=== PATIENT | female | born 1955 | race Caucasian/White ===

== ENCOUNTER 2020-12-19 13:21 | Emergency (ER) | payer MEDICARE, MEDICAID ==
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
[2020-12-19 13:34] VITALS: BP 102/70
[2020-12-19] MEDS ORDERED: oxyCODONE /ACETAMINOPHEN 5-325MG TAB PO ONE (14:00)
--- NOTE | 2020-12-19 15:07 | Cat Scan Report ---
CT CERVICAL SPINE: 12/19/2020 INDICATION / CLINICAL INFORMATION: fall neck pain. COMPARISON: None available. FINDINGS: CT images of the cervical spine were obtained. Images are evaluated in the axial, coronal, and sagitt al planes. There is no definite evidence of acute abnormality. Extensive postsurgical changes are present. There is been anterior fusion at the C4-C7 levels. There is been posterior laminectomy and fusion at the C4-5 level. CRANIOCERVICAL JUNCTION: Unremarkable. PARASPINAL STRUCTURES: Unremarkable IMPRESSION: No acute abnormality. Extensive postoperative changes. All CT scans at this location are performed using dose reduction to ALARA by means of automated expos ure control. Signer Name: Dillan Marsh MD Signed: 12/19/2020 3:03 PM Workstation Name: [id number]
--- NOTE | 2020-12-19 15:09 | Cat Scan Report ---
CT BRAIN: 12/19/2020 INDICATION / CLINICAL INFORMATION: fall closed head injury, on blood thinners. COMPARISON: None available. FINDINGS: BRAIN/INTRACRANIAL STRUCTURES: Unenhanced CT images of the brain demonstrate no evidence of acute int racranial abnormality. Ventricles and sulci are prominent in size, consistent with diffuse cerebral atrophy. There is some subtle small amount of subfrontal cortical encephalomalacia present bilaterally, which may be an indication of remote traumatic brain injury. There is no evidence of acute edema or hemorrh age. There are no abnormal extra-axial fluid collections. EXTRACRANIAL STRUCTURES: Unremarkable. IMPRESSION: No acute abnormality. Chronic and age-related changes. All CT scans at this location are performed using dose reduction to ALARA by means of automated expos ure control. Signer Name: Dillan Marsh MD Signed: 12/19/2020 3:04 PM Workstation Name: [id number]
--- NOTE | 2020-12-19 15:40 | Emergency Department Report ---
ED General Adult HPI - General Chief complaint: Fall Stated complaint: NECK PAIN PUI?: No Source: patient, EMS (Verbal report received from emergency medical services. EMS documentation not available at time of chart dictation ) Mode of arrival: Wheelchair Limitations: Physical Limitation - History of Present Illness Initial comments: The patient was evaluated in the emergency department for symptoms described in the history of present illness. He/she was evaluated in the context of the global COVID-19 pandemic, which necessitated consideration that the patient might be at risk for infection with the virus that causes COVID-19. Institutional protocols and algorithms that pertain to the evaluation of patients at risk for COVID-19 are in a state of rapid change based on information released by regulatory bodies including the CDC and federal and state organizations. These policies and algorithms were followed during the patient's care in the emergency department. Please note that these policies, procedures and recommendations changed on a rapid basis. The patient is a 65-year-old gentleman, with a past medical history of cervical spine fusion surgery, prominently anticoagulated, A. fib, chronic disability, arthritis, who presents to the ER today with complaint of headache and neck pain after mechanical fall yesterday while at [employer]. The patient states he is typically in a wheelchair, occasionally ambulatory with a walker. He reports that he stood up yesterday, in the bathroom, and that he felt his wheelchair give out on him, and he fell and hit his head and neck. He complains of headache and neck pain. He denies chest pain, shortness of breath, abdominal pain, new/different extremity weakness and numbness, loss of vision, he also denies Covid symptoms, and he denies hematemesis and bright red blood per rectum. He has chronic pain medication at home. He was given a Percocet here in the emergency room, which improved his pain. He states he is ready for discharge. He lives at home with family. His primary care doctor is at [facility]. 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. -: Sudden, days(s) Location: head, neck Radiation: non-radiation Severity scale (0 -10): 5 Consistency: constant Improves with: medication, rest Worsens with: movement - Related Data Allergies Allergy/AdvReac Type Severity Reaction Status Date / Time No Known Allergies Allergy Unverified 12/19/20 13:30 ED Review of Systems ROS: Stated complaint: NECK PAIN Other details as noted in HPI Constitutional: denies: fever Eyes: denies: eye discharge ENT: denies: epistaxis Respiratory: denies: cough Cardiovascular: denies: chest pain Gastrointestinal: denies: abdominal pain Musculoskeletal: arthralgia, myalgia Neurological: headache, weakness (Chronic weakness. Denies new weakness.). denies: numbness, paresthesias ED Past Medical Hx - Past Medical History Previous Medical History?: Yes Hx Hypertension: Yes Hx Heart Attack/AMI: No Hx Diabetes: No Hx of Cancer: Yes (Prostate cancer) Hx COPD: Yes - Surgical History Past Surgical History?: Yes Additional Surgical History: cervical disk surgery ED Physical Exam - General Limitations: Physical Limitation General appearance: alert, in no apparent distress - Head Head exam: Present: atraumatic, normocephalic - Eye Eye exam: Present: normal appearance, PERRL, EOMI. Absent: nystagmus - ENT ENT exam: Present: normal exam, normal orophraynx, mucous membranes moist, TM's normal bilaterally, normal external ear exam - Neck Neck exam: Present: normal inspection, tenderness (Paracervical tenderness), full ROM - Respiratory Respiratory exam: Present: decreased breath sounds. Absent: respiratory distress, wheezes, rales, rhonchi, stridor - Cardiovascular Cardiovascular Exam: Present: regular rate, irregular rhythm, normal heart sounds. Absent: bradycardia, tachycardia, systolic murmur, diastolic murmur, rubs, gallop - GI/Abdominal GI/Abdominal exam: Present: soft. Absent: distended, tenderness, guarding, rebound, rigid, pulsatile mass - Extremities Exam Extremities exam: Present: normal inspection, full ROM, other (2+ pulses noted in the bilateral upper and lower extremities. There is no palpable cord. negative Homans sign. Muscular compartments are soft. The pelvis is stable.). Absent: pedal edema, calf tenderness - Back Exam Back exam: Present: normal inspection, paraspinal tenderness. Absent: tenderness, CVA tenderness (R), CVA tenderness (L) - Neurological Exam Neurological exam: Present: alert, oriented X3, other (There is no facial droop. The tongue is midline. EOMI. 5 out of 5 strength in 4 extremities. Sensation is intact to light touch in 4 extremities. Downgoing plantar reflexes bilaterally. 3+ quadriceps reflexes bilaterally. 2+ biceps reflexes bilaterally.) - Psychiatric Psychiatric exam: Present: normal affect, normal mood - Skin Skin exam: Present: warm, dry, intact, normal color. Absent: rash ED Course Vital Signs 12/19/20 13:32 Temperature 97.9 F Pulse Rate 63 Respiratory 20 Rate Blood Pressure 102/70 O2 Sat by Pulse 94 Oximetry ED Medical Decision Making - Lab Data Vital Signs 12/19/20 13:32 Temperature 97.9 F Pulse Rate 63 Respiratory 20 Rate Blood Pressure 102/70 O2 Sat by Pulse 94 Oximetry - Radiology Data Radiology results: pending, report reviewed, image reviewed CT BRAIN: 12/19/2020 INDICATION / CLINICAL INFORMATION: fall closed head injury, on blood thinners. COMPARISON: None available. FINDINGS: BRAIN/INTRACRANIAL STRUCTURES: Unenhanced CT images of the brain demonstrate no evidence of acute intracranial abnormality. Ventricles and sulci are prominent in size, cons istent with diffuse cerebral atrophy. There is some subtle small amount of subfrontal cortical encephalomalacia present bilaterally, which may be an indication of remote traumatic brain injury. There is no evidence of acute edema or hemorrhage. There are no abnormal extra-axial fluid collections. EXTRACRANIAL STRUCTURES: Unremarkable. IMPRESSION: No acute abnormality. Chronic and age-related changes. All CT scans at this location are performed using dose reduction to ALARA by means of automated exposure control. Signer Name: Dillan Marsh MD Signed: 12/19/2020 2:04 PM Workstation Name: [id number] CT CERVICAL SPINE: 12/19/2020 INDICATION / CLINICAL INFORMATION: fall neck pain. COMPARISON: None available. FINDINGS: CT images of the cervical spine were obtained. Images are evaluated in the axial, coronal, and sagittal planes. There is no definite evidence of acute abnormality. Extensive postsurgical changes are present. There is been anterior fusion at the C4-C7 levels. There is been posterior laminectomy and fusion at the C4-5 level. CRANIOCERVICAL JUNCTION: Unremarkable. PARASPINAL STRUCTURES: Unremarkable IMPRESSION: No acute abnormality. Extensive postoperative changes. All CT scans at this location are performed using dose reduction to ALARA by means of automated exposure control. Signer Name: Dillan Marsh MD Signed: 12/19/2020 2:03 PM Workstation Name: [id number] - Medical Decision Making Differential diagnosis, including but not limited to: Mechanical fall, closed head injury, cervical spine injury Assessment and plan: 65-year-old gentleman, who is anticoagulated, with close head injury, and neck pain. His fall occurred yesterday. CT scan of the brain and cervical spine were obtained, which did not show any traumatic findings. He felt improved after pain medication. He is able to weight-bear without significant difficulty. He lives at home with family, and reports that he has a cane and a walker. He also patient on the natural history of closed head injury, and pain after mechanical fall. The patient states he is ready for discharge. The patient is medically suitable for discharge at this time. Return precautions are reviewed. Patient has articulated understanding. Critical care attestation.: If time is entered above; I have spent that time in minutes in the direct care of this critically ill patient, excluding procedure time. ED Disposition Clinical Impression: Closed head injury, Neck pain, Fall Disposition: HOME / SELF CARE / HOMELESS Is pt being admited?: No Does the pt Need Aspirin: No Condition: Good Instructions: Neck Exercises, Head Injury, Adult, [id number] Additional Instructions: Please continue current outpatient medications. Alternate ice packs and heat packs as needed to areas of the body that are physically painful. Patient may take his prescribed pain medication at home, and may also alternate with [id number] Tylenol/acetaminophen. Maximum daily dose of Tylenol for 24 hours is 3 g. Pain typically gets worse before gets better after blunt trauma and mechanical fall. Please follow-up with your primary care doctor in the next 5 to 7 days for repeat checkup and evaluation. Avoid strenuous physical activity, contact sports, and heavy lifting. Weightbearing as tolerated. Please return to the emergency room right away with new pain, worsened pain, migration of pain, projectile vomiting, change in mental status, confusion, inability to tolerate liquid feeds, new, worsened or different symptoms not present on the initial emergency room evaluation. Referrals: [facility] [Provider Group] - 3-5 Days
== END 2020-12-19 17:00 | disposition home or self-care (01) ==
LOC: ED 13:21
DX: S09.90XA Unspecified injury of head, initial encounter (principal); M54.2 Cervicalgia; I10 Essential (primary) hypertension; Z85.9 Personal history of malignant neoplasm, unspecified; Z98.890 Other specified postprocedural states; W19.XXXA Unspecified fall, initial encounter; Y93.89 Activity, other specified; Y92.89 Other specified places as the place of occurrence of the external cause; Y99.8 Other external cause status
CPT/HCPCS: 70450; 72125; 99284